=== PATIENT | female | born 1960 | race Caucasian/White ===

== ENCOUNTER → 2018-05-12 | Outpatient (CLI) | payer BC ==
--- NOTE | 2018-05-12 15:18 | Diagnostic Imaging Report ---
INDICATION: Fall with right wrist pain. TECHNIQUE: AP, oblique, and lateral views of the right wrist were obtained. FINDINGS: No fracture or acute bony abnormality is seen. The joint spaces are unremarkable. IMPRESSION: Negative right wrist. Dictated by: Dictated on workstation # [id number]
== END ==
LOC: RAD FS 14:24
PROVIDERS: ATTEND Nurse Practitioner
DX: G56.03 Carpal tunnel syndrome, bilateral upper limbs (principal); W19.XXXA Unspecified fall, initial encounter
CPT/HCPCS: 73110

== ENCOUNTER → 2019-02-05 | Outpatient (CLI) | payer BC ==
[2019-02-05 08:45] LABS: BASOPHILS # (AUTO) 0.1 10^3/uL (0.0-0.1); BASOPHILS % (AUTO) 1 % (0-10); EOSINOPHILS # (AUTO) 0.2 10^3/uL (0.0-0.3); EOSINOPHILS % (AUTO) 2 % (0-10); HEMATOCRIT 40 % (35-52); HEMOGLOBIN 13.2 G/DL (11.5-16.0); LYMPHOCYTES % (AUTO) 29 % (12-44); MEAN CORPUSCULAR HEMOGLOBIN 32 PG (25-34); MEAN CORPUSCULAR HGB CONC 33 G/DL (32-36); MEAN CORPUSCULAR VOLUME 96 FL (80-99); MEAN PLATELET VOLUME 10.2 FL (7.4-10.4); MONOCYTES # (AUTO) 0.8 X 10^3 (0.0-1.0); MONOCYTES % (AUTO) 8 % (0-12); NEUTROPHILS # (AUTO) 6.3 X 10^3 (1.8-7.8); NEUTROPHILS % (AUTO) 61 % (42-75); PLATELET COUNT 231 10^3/uL (130-400); RED CELL DISTRIBUTION WIDTH 13.1 % (10.0-14.5); WHITE BLOOD COUNT 10.4 10^3/uL (4.3-11.0)
--- NOTE | 2019-02-05 08:54 | Diagnostic Imaging Report ---
INDICATION: Abdominal pain. Abdominal film obtained at 08:39 a.m. There is prominent stool throughout the colon. There is no overt obstruction or ileus. Calcification is seen overlying the mid pelvis which is likely due to a fibroid lesion. There is no overt bony abnormality. IMPRESSION: Prominent stool throughout the colon with no overt obstruction or ileus. Irregular calcification overlying the pelvis is seen which is likely due to underlying fibroid lesion, correlate with sonography if warranted. Dictated by: Dictated on workstation # [id number]
[2019-02-05 09:14] LABS: ALANINE AMINOTRANSFERASE 6 U/L (0-55); ALBUMIN 3.6 GM/DL (3.2-4.5); ALKALINE PHOSPHATASE 87 U/L (40-136); AMYLASE 43 U/L (25-125); BILIRUBIN,TOTAL 0.3 MG/DL (0.1-1.0); BUN/CREATININE RATIO 23; CALCIUM 9.1 MG/DL (8.5-10.1); CARBON DIOXIDE 30 MMOL/L (21-32); CHLORIDE 98 MMOL/L (98-107); CREATININE SERUM 0.78 MG/DL (0.60-1.30); GFR ESTIMATED > 60; GLUCOSE 104 MG/DL (70-105); LIPASE 31 U/L (8-78); POTASSIUM 3.3 MMOL/L (3.6-5.0); SODIUM 139 MMOL/L (135-145); TOTAL PROTEIN 6.6 GM/DL (6.4-8.2)
== END ==
LOC: RAD FS 08:26
PROVIDERS: ATTEND Nurse Practitioner Family
DX: N94.89 Other specified conditions associated with female genital organs and menstrual cycle (principal); R10.13 Epigastric pain; M54.5 Low back pain
CPT/HCPCS: 36415; 74018; 80053; 82150; 83690; 85025

== ENCOUNTER → 2019-07-23 | Outpatient (CLI) | payer BC ==
[2019-07-23 08:44] LABS: CHLORIDE 100 MMOL/L (98-107); POTASSIUM 3.6 MMOL/L (3.6-5.0); SODIUM 142 MMOL/L (135-145)
[2019-07-23 08:45] LABS: ALANINE AMINOTRANSFERASE 9 U/L (0-55); ALBUMIN 3.9 GM/DL (3.2-4.5); ALKALINE PHOSPHATASE 95 U/L (40-136); BILIRUBIN,TOTAL 0.5 MG/DL (0.1-1.0); BUN/CREATININE RATIO 23; CALCIUM 9.3 MG/DL (8.5-10.1); CARBON DIOXIDE 29 MMOL/L (21-32); CREATININE SERUM 0.69 MG/DL (0.60-1.30); GFR ESTIMATED > 60; GLUCOSE 102 MG/DL (70-105); TOTAL PROTEIN 6.5 GM/DL (6.4-8.2)
[2019-07-23 15:11] LABS: CHOLESTEROL 197 MG/DL (< 200); HDL CHOLESTEROL 48 MG/DL (40-60); TRIGLYCERIDES 81 MG/DL (<150); VLDL CHOLESTEROL 16 MG/DL (5-40)
== END ==
LOC: LAB FS 07:53
PROVIDERS: ATTEND Family Medicine
DX: I10 Essential (primary) hypertension (principal)
CPT/HCPCS: 36415; 80053; 80061

== ENCOUNTER → 2019-09-07 | Outpatient (CLI) | payer BC ==
--- NOTE | 2019-09-07 14:04 | Diagnostic Imaging Report ---
INDICATION: Low back pain. TIME OF EXAM: 1:21 PM There is mild left convexity lumbar scoliotic curvature. Lordotic curvature is normal. Minimal anterolisthesis of L5 on S1 is seen. Vertebral body heights are maintained. No acute compression fracture is identified. There is generalized degenerative disc disease with variable disc space narrowing. There is lower lumbar facet arthropathy. Aorta is heavily calcified. Calcified mass in the midline pelvis is noted, likely calcified fibroid. IMPRESSION: 1. Lumbar spondylosis and scoliosis. No acute bony abnormality is detected. 2. Pelvic calcification, likely calcified uterine fibroid. Dictated by: Dictated on workstation # [id number]
== END ==
LOC: RAD FS 13:13
PROVIDERS: ATTEND Family Medicine
DX: M47.816 Spondylosis without myelopathy or radiculopathy, lumbar region (principal); M41.86 Other forms of scoliosis, lumbar region; M61.48 Other calcification of muscle, other site
CPT/HCPCS: 72100

== ENCOUNTER → 2020-01-21 | Outpatient (CLI) | payer BC ==
[2020-01-21 09:48] LABS: ALANINE AMINOTRANSFERASE 10 U/L (0-55); ALBUMIN 3.5 GM/DL (3.2-4.5); ALKALINE PHOSPHATASE 94 U/L (40-136); BILIRUBIN,TOTAL 0.6 MG/DL (0.1-1.0); BUN/CREATININE RATIO 17; CARBON DIOXIDE 29 MMOL/L (21-32); CHLORIDE 105 MMOL/L (98-107); GFR ESTIMATED > 60; GLUCOSE 92 MG/DL (70-105); POTASSIUM 3.7 MMOL/L (3.6-5.0); SODIUM 144 MMOL/L (135-145)
[2020-01-21 15:15] LABS: CHOLESTEROL 205 MG/DL (< 200); HDL CHOLESTEROL 46 MG/DL (40-60); TRIGLYCERIDES 83 MG/DL (<150); VLDL CHOLESTEROL 17 MG/DL (5-40)
== END ==
LOC: LAB FS 08:40
PROVIDERS: ATTEND Family Medicine
DX: I10 Essential (primary) hypertension (principal)
CPT/HCPCS: 36415; 80053; 80061

== ENCOUNTER → 2020-07-28 | Outpatient (CLI) | payer BC ==
[2020-07-28 11:51] LABS: ALANINE AMINOTRANSFERASE 8 U/L (0-55); ALBUMIN 3.8 GM/DL (3.2-4.5); ALKALINE PHOSPHATASE 104 U/L (40-136); BILIRUBIN,TOTAL 0.4 MG/DL (0.1-1.0); BUN/CREATININE RATIO 22; CALCIUM 9.3 MG/DL (8.5-10.1); CARBON DIOXIDE 30 MMOL/L (21-32); CHLORIDE 104 MMOL/L (98-107); CREATININE SERUM 0.81 MG/DL (0.60-1.30); GFR ESTIMATED > 60; GLUCOSE 99 MG/DL (70-105); SODIUM 142 MMOL/L (135-145); TOTAL PROTEIN 6.2 GM/DL (6.4-8.2)
[2020-07-28 14:50] LABS: TRIGLYCERIDES 96 MG/DL (<150); VLDL CHOLESTEROL 19 MG/DL (5-40)
[2020-07-28 14:56] LABS: CHOLESTEROL 206 MG/DL (< 200); HDL CHOLESTEROL 41 MG/DL (40-60)
== END ==
LOC: LAB FS 10:44
PROVIDERS: ATTEND Family Medicine
DX: I10 Essential (primary) hypertension (principal)
CPT/HCPCS: 36415; 80053; 80061

== ENCOUNTER → 2021-01-26 | Outpatient (CLI) | payer BC ==
[2021-01-26 11:21] LABS: POTASSIUM 3.6 MMOL/L (3.6-5.0)
[2021-01-26 11:22] LABS: ALBUMIN 3.7 GM/DL (3.2-4.5); BILIRUBIN,TOTAL 0.6 MG/DL (0.1-1.0); CALCIUM 9.1 MG/DL (8.5-10.1); CREATININE SERUM 0.81 MG/DL (0.60-1.30); TOTAL PROTEIN 6.2 GM/DL (6.4-8.2)
== END ==
LOC: LAB FS 09:42
PROVIDERS: ATTEND Family Medicine
DX: E78.5 Hyperlipidemia, unspecified (principal)
CPT/HCPCS: 36415; 80053; 80061

== ENCOUNTER → 2021-08-03 | Outpatient (CLI) | payer BC ==
[2021-08-03 10:22] LABS: CALCIUM 9.2 MG/DL (8.5-10.1); CREATININE SERUM 0.68 MG/DL (0.60-1.30); POTASSIUM 3.7 MMOL/L (3.6-5.0)
[2021-08-03 10:23] LABS: ALBUMIN 3.9 GM/DL (3.2-4.5); BILIRUBIN,TOTAL 0.5 MG/DL (0.1-1.0); TOTAL PROTEIN 6.6 GM/DL (6.4-8.2)
== END ==
LOC: LAB FS 09:43
PROVIDERS: ATTEND Family Medicine
DX: E78.2 Mixed hyperlipidemia (principal); I10 Essential (primary) hypertension
CPT/HCPCS: 36415; 80053; 80061